=== PATIENT | female | born 1975 | race African-American/Black ===

== ENCOUNTER 2016-11-14 21:50 | Emergency (ER) | payer SELFPAY ==
[~2016-11-14] VITALS: Ht 165.1 cm; Wt 128.0 kg
[2016-11-14] MEDS ORDERED: ALBUTEROL (0.083%) 2.5MG/3ML NEB HHN STA (22:25)
[2016-11-14 22:53] LABS: BASOPHILS % 0.6 % (0.0-2.0); EOSINOPHILS % 0.5 % (0.0-5.0); HEMOGLOBIN. 10.6 g/dL (12.0-16.0); LYMPHOCYTES % 8.9 % (20.0-50.0); MEAN CORPUSCULAR HEMOGLOBIN 23.1 pg (28.0-32.0); MEAN PLATELET VOLUME 9.6 fl (7.4-10.4); MONOCYTES % 1.6 % (2.0-8.0); NEUTROPHILS % 88.4 % (40.0-76.0); PARTIAL THROMBOPLASTIN TIME 32.2 sec (24.0-34.0); PLATELET 233 x1000/uL (130-400); PROTHROMBIN TIME 10.9 sec
[2016-11-14 23:03] LABS: CARBON DIOXIDE 24 mEq/L (21-32); CHLORIDE 107 mEq/L (98-107); TROPONIN I < 0.02 ng/mL (0.00-0.04)
[2016-11-14 23:50] VITALS: BP 150/77
== END 2016-11-15 00:05 | disposition home or self-care (01) ==
LOC: ER 22:00
DX: R06.02 Shortness of breath (principal); R05 Cough; I51.7 Cardiomegaly; E66.01 Morbid (severe) obesity due to excess calories; Z68.42 Body mass index [BMI] 45.0-49.9, adult
CPT/HCPCS: 36415; 71010; 80053; 83880; 84484; 85025; 85610; 85730; 93005; 94640; 99285; J7611; Z7610

== ENCOUNTER 2018-07-20 13:22 | Emergency (ER) | payer SELFPAY ==
[~2018-07-20] VITALS: Ht 165.1 cm; Wt 146.0 kg
[2018-07-20] MEDS ORDERED: MAGNESIUM 2 G PREMIX 50 ML IV STA (13:45)
[2018-07-20] MEDS ORDERED: ALBUTEROL (0.083%) 2.5MG/3ML NEB HHN STA (13:45)
[2018-07-20] MEDS ORDERED: IPRATROPIUM BROMIDE (0.02%) 0.5MG/2.5ML NEB HHN STA (13:45)
[2018-07-20] MEDS ORDERED: METHYLPREDNISOLONE SOD SUCC 125 MG/2 ML VIAL IV STA (13:45)
[2018-07-20] MEDS ORDERED: SODIUM CHLORIDE 0.9% 1,000 ML IV ONE (13:45)
[2018-07-20] MEDS ORDERED: PREDNISONE 20MG TABLET PO ONE (14:30)
[2018-07-20 18:30] VITALS: BP 151/92
== END 2018-07-20 18:31 | disposition home or self-care (01) ==
LOC: ER 13:22
DX: J45.901 Unspecified asthma with (acute) exacerbation (principal); R03.0 Elevated blood-pressure reading, without diagnosis of hypertension; E66.01 Morbid (severe) obesity due to excess calories; Z68.43 Body mass index [BMI] 50.0-59.9, adult
CPT/HCPCS: 71045; 81025; 94640; 96365; 96366; 96375; 99283; J2930; J3475; J7030; J7512; J7611

== ENCOUNTER 2018-07-24 01:18 | Emergency (ER) | payer SELFPAY ==
[~2018-07-24] VITALS: Ht 165.1 cm; Wt 146.0 kg
[2018-07-24] MEDS ORDERED: IPRATROPIUM BROMIDE (0.02%) 0.5MG/2.5ML NEB HHN STA (03:10)
[2018-07-24] MEDS ORDERED: ALBUTEROL (0.083%) 2.5MG/3ML NEB HHN STA (03:10)
[2018-07-24] MEDS ORDERED: METHYLPREDNISOLONE SOD SUCC 125 MG/2 ML VIAL IV STA (03:10)
[2018-07-24 04:30] LABS: BASOPHILS % 0.3 % (0.0-2.0); HEMATOCRIT. 33.7 % (36.0-48.0); HEMOGLOBIN. 10.4 g/dL (12.0-16.0); LYMPHOCYTES % 14.8 % (20.0-50.0); MEAN CORPUSCULAR HEMOGLOBIN 23.5 pg (28.0-32.0); MEAN CORPUSCULAR VOLUME 76.1 fL (81.0-99.0); MEAN PLATELET VOLUME 9.5 fl (7.4-10.4); MONOCYTES % 7.5 % (2.0-8.0); NEUTROPHILS % 77.4 % (40.0-76.0); PLATELET 233 x1000/uL (130-400); RED BLOOD CELL COUNT 4.43 mill/uL (4.2-5.4); RED CELL DISTRIBUTION WIDTH 18.4 % (11.6-14.6)
[2018-07-24 04:44] LABS: CHLORIDE 106 mEq/L (98-107)
[2018-07-24] MEDS ORDERED: DIPHENHYDRAMINE 50MG/ML VIAL IV PRN (07:45)
[2018-07-24] MEDS ORDERED: DOCUSATE SODIUM 100MG CAPSULE PO PRN ×2 (07:45→16:00)
[2018-07-24] MEDS ORDERED: ACETAMINOPHEN 325MG TABLET PO PRN (07:45)
[2018-07-24] MEDS ORDERED: LORAZEPAM 2MG/ML CPJ IV PRN (07:45)
[2018-07-24] MEDS ORDERED: ONDANSETRON HCL 4MG/2ML INJ IV PRN ×2 (07:45→16:00)
[2018-07-24] MEDS ORDERED: GUAIFENESIN 200MG/10ML SUGAR FREE UDC PO PRN (07:45)
[2018-07-24] MEDS ORDERED: HYDROCODONE/ACETAMINOPHEN 10/325MG TABLET PO PRN ×2 (07:45→16:00)
[2018-07-24] MEDS ORDERED: ENOXAPARIN 40MG/0.4ML SYR SUBCUT SCH (07:45)
[2018-07-24] MEDS ORDERED: MAGNESIUM/ALUMINUM HYDROXIDE/SIMETHICONE 30ML UDC PO PRN ×2 (07:45→16:00)
[2018-07-24] MEDS ORDERED: HYDROMORPHONE HCL/PF 2MG/ML CPJ IV PRN ×2 (07:45→16:00)
[2018-07-24] MEDS: HYDRALAZINE 20MG/ML VIAL IV PRN ×2 (08:27→15:35)
[2018-07-24] MEDS: IPRATROPIUM/ALBUTEROL 0.5-3(2.5)MG/3ML NEB INH PRN ×2 (08:53→14:26)
[2018-07-24] MEDS: METHYLPREDNISOLONE SOD SUCC 125 MG/2 ML VIAL IV SCH ×2 (09:14→15:00)
[2018-07-24] MEDS: CLONIDINE 0.1MG TABLET PO PRN ×2 (10:16→15:35)
[2018-07-24] MEDS ORDERED: SODIUM CHLORIDE 0.9% INJ 3ML FLUSH IVF SCH (14:00)
[2018-07-24] MEDS ORDERED: IPRATROPIUM/ALBUTEROL 0.5-3(2.5)MG/3ML NEB ONE (14:26)
[2018-07-24 15:42] VITALS: BP 168/76
[2018-07-24] MEDS ORDERED: FUROSEMIDE 40MG/4ML VIAL IVP SCH (15:45)
== END 2018-07-24 15:45 | disposition left against medical advice (07) ==
LOC: ER 01:18 → EDBEDREQ 05:24 → EDBEDREQTM 05:24 → ER 15:45 → CANBEDREQ 16:03
DX: J45.902 Unspecified asthma with status asthmaticus (principal); R03.0 Elevated blood-pressure reading, without diagnosis of hypertension; E66.01 Morbid (severe) obesity due to excess calories; Z68.43 Body mass index [BMI] 50.0-59.9, adult
CPT/HCPCS: 36415; 71045; 80053; 82962; 83605; 83880; 84484; 85025; 93005; 94640; 94644; 96374; 96375; 96376; 99291; J0360; J1200; J2060; J2930; J7611; J7620; Z7610